=== PATIENT | female | born 2000 | race Caucasian/White ===

== ENCOUNTER 2022-09-22 18:52 | Emergency (ER) | payer BC, SELFPAY ==
[2022-09-22 19:10] VITALS: BP 129/93; PULSE 124; RESP 16; TEMP 36.2; O2SAT 100
--- NOTE | 2022-09-22 19:28 | ED.GENADULT ---
HPI - General Adult General Chief complaint: Head Injury Stated complaint: passed out and hit head Time Seen by Provider: 09/22/22 19:17 Source: patient and RN notes reviewed Mode of arrival: ambulatory Limitations: no limitations History of Present Illness HPI narrative: Patient presents today complaining of syncopal episode. She loss consciousness for approximately 60 seconds around 4:30 p.m. today. She fell and struck her head on the linoleum floor at a family member's home. Since that time she has had a worsened headache, nausea, dizziness with standing, and feeling, ?spacey. ? She currently rates her headache 09/28 and took an Aleve around 174. Today, prior to her syncopal episode she had a mild headache and nausea and was also experiencing body aches and sore throat. These symptoms began this morning. History of POTS. States she has had 3 syncopal episodes since April 2022. Related Data Allergies Allergy/AdvReac Type Severity Reaction Status Date / Time No Known Allergies Allergy Unknown Verified 09/22/22 19:08 Review of Systems Review of Systems: CONSTITUTIONAL: Denies fever, chills, or sweats.+ body aches EYES: Denies visual changes, redness, or discharge. ENT: Denies rhinorrhea, congestion, or otalgia.+ sore throat CARDIOVASCULAR: Denies chest pain, palpitations, or edema. RESPIRATORY: Denies cough or dyspnea. GASTROINTESTINAL: Denies abdominal pain, vomiting, or diarrhea.+ nausea GENITOURINARY: Denies dysuria or hematuria. SKIN: Denies rash, itching, or wounds. MUSCULOSKELETAL: Denies back pain, joint pain, or myalgia. NEUROLOGIC: Denies numbness, tingling, or weakness.+ headache, dizzy PSYCH: Denies depression or anxiety. [facility] Past Medical History Medical History (Updated 09/22/22 @ 19:44 by Brittany Sunshine, STATIONARY ENGINEER, ) POTS (postural orthostatic tachycardia syndrome) Comments At time of signature, I have reviewed and agree with nursing past medical, surgical, social and family history unless otherwise noted. Please see nursing chart for further information. There is no relevant family history pertinent to the presenting complaint Exam Narrative: GENERAL: Well-appearing, well-nourished, and in no acute distress. HEAD: Normocephalic, atraumatic. States she struck the left posterior scalp on the floor. No ecchymosis or edema noted. EYES: EOMI. PERRL. No nystagmus. No redness or drainage. Conjunctivae normal. ENT: Mucous membranes pink and moist. Nares clear. No rhinorrhea. TMs normal bilaterally. Throat erythematous. No edema or exudate.. Uvula midline. NECK: Normal AROM. Supple. No lymphadenopathy. CHEST: No respiratory distress. Clear to auscultation. HEART: Regular rate and rhythm. No murmur appreciated. Normal peripheral pulses. EXTREMITIES: Normal range of motion. No edema. Dorsiflexion and plantar flexion equal and strong against resistance. Hand design assistant equal and strong SKIN: Warm, dry, no rash. Capillary refill normal. Normal skin turgor. NEURO: No focal deficits. Alert and oriented x3. Gait steady. PSYCH: Normal affect. No signs of depression or anxiety. Course Course Level of Care: Express Care Visit Vital Signs Vital signs: Vital Signs Temperature 97.2 F L 09/22/22 19:10 Pulse Rate 124 H 09/22/22 19:10 Respiratory Rate 16 09/22/22 19:10 Blood Pressure 129/93 H 09/22/22 19:10 Pulse Oximetry 100 09/22/22 19:10 Temperature 97.2 F L 09/22/22 19:10 Pulse Rate 124 H 09/22/22 19:10 Respiratory Rate 16 09/22/22 19:10 Blood Pressure 129/93 H 09/22/22 19:10 Pulse Oximetry 100 09/22/22 19:10 Reviewed. Pt has been instructed to follow up with her PCP regarding her elevated blood pressure today. Medical Decision Making MDM Narrative Medical decision making narrative: Rapid strep positive. Will treat patient's symptoms with amoxicillin and Zofran. Gave cautionary instructions for concussion as well. Anticipatory guidance given. Diff
== END 2022-09-22 19:50 | disposition home or self-care (01) ==
PROVIDERS: Emergency Provider Nurse Practitioner
DX: J02.0 Streptococcal pharyngitis (principal); S06.0X1A Concussion with loss of consciousness of 30 minutes or less, initial encounter; W19.XXXA Unspecified fall, initial encounter
CPT/HCPCS: 87880; 99213; G0463